=== PATIENT | female | born 1945 | race Caucasian/White ===

== ENCOUNTER 2017-12-22 14:24 | Emergency (ER) | payer OTHER ==
[~2017-12-22] VITALS: Ht 157.5 cm; Wt 63.0 kg
[2017-12-22] MEDS ORDERED: COZAAR100 MG (14:43)
[2017-12-22] MEDS ORDERED: LETROZOLE2.5 MG (14:43)
[2017-12-22] MEDS ORDERED: ZOCOR20 MG (14:43)
[2017-12-22] MEDS ORDERED: SYNTHROID50 MCG (14:43)
[2017-12-22] MEDS ORDERED: AMLODIPINE BESYL5 MG (14:44)
== END 2017-12-22 21:24 | disposition home or self-care (01) ==
LOC: ER 14:24
DX: S01.121A Laceration with foreign body of right eyelid and periocular area, initial encounter (principal); S69.81XA Other specified injuries of right wrist, hand and finger(s), initial encounter; W01.118A Fall on same level from slipping, tripping and stumbling with subsequent striking against other sharp object, initial encounter; Y93.89 Activity, other specified; Y92.488 Other paved roadways as the place of occurrence of the external cause; Y99.8 Other external cause status